=== PATIENT | male | born 1935 | race Caucasian/White ===

== ENCOUNTER 2018-08-05 15:00 | Outpatient (CLI) | payer MEDICARE, OTHER ==
--- NOTE | 2018-08-05 17:11 | RAD ---
CHEST PA AND LATERAL: 08/05/18 HISTORY: 83-year-old male with history of dyspnea. COMPARISON: 02/07/16. FINDINGS: Mild hyperinflation. Heart size is normal. There is no confluent pneumonia, overt edema, or pleural e ffusion. IMPRESSION: No acute intrathoracic disease. Mild bilateral hyperinflation, stable. 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 POS: [facility]
== END 2018-08-05 15:01 | disposition home or self-care (01) ==
LOC: RAD 15:00
PROVIDERS: ATTEND Internal Medicine Pulmonary Disease
DX: R06.00 Dyspnea, unspecified (principal); R91.8 Other nonspecific abnormal finding of lung field; I70.0 Atherosclerosis of aorta; I77.819 Aortic ectasia, unspecified site
CPT/HCPCS: 71046

== ENCOUNTER 2018-08-18 09:51 | Outpatient (CLI) | payer MEDICARE, OTHER ==
[2018-08-18 11:22] LABS: Hemoglobin 13.3 g/dL (14.0-18.0); Mean Corpuscular Hemoglobin 34.7 pg (27.0-31.0); Mean Platelet Volume 7.5 fL (7.4-10.4); Platelet Count 284 thou/uL (130-400); RBC Distribution Width 11.3 % (11.5-14.5); Red Blood Cell (RBC) Count 3.85 mill/uL (4.70-6.10); White Blood Cell (WBC) Count 5.9 thou/uL (4.8-10.8)
[2018-08-18 11:28] LABS: PTT 33.6 SEC (22.9-36.1); Prothrombin Time 13.2 SEC (12.0-14.7)
[2018-08-18 11:46] LABS: Anion Gap 13 mmol/L (10-20); BUN (Urea Nitrogen) 19 mg/dL (8.4-25.7); Calc. Creatinine Clearance 0 mL/min (70-130); Calcium 9.3 mg/dL (7.8-10.44); Carbon Dioxide 24 mmol/L (23-31); Chloride 105 mmol/L (98-107); Estimated GFR-MDRD 70; Glucose 89 mg/dL (83-110); Potassium 4.7 mmol/L (3.5-5.1); Sodium 137 mmol/L (136-145)
== END 2018-08-18 09:52 | disposition home or self-care (01) ==
LOC: LABBT 09:51
PROVIDERS: ATTEND Urology
DX: Z01.818 Encounter for other preprocedural examination (principal); N21.0 Calculus in bladder; N13.2 Hydronephrosis with renal and ureteral calculous obstruction
CPT/HCPCS: 80048; 85027; 85610; 85730; 93005; 93010

== ENCOUNTER 2018-08-24 06:02 | Day surgery (SDC) | payer MEDICARE, OTHER ==
[2018-08-18 10:18] VITALS: BMI 32.0
[2018-08-24] MEDS ORDERED: Fentanyl 100 MCG/2 ML VIAL ONE (06:40)
[2018-08-24] MEDS ORDERED: cefTRIAXone\\ROCEPHIN 2 GM in Sodium Chloride 0.9% 100 ML IVPB SCH (07:00)
[2018-08-24] MEDS ORDERED: Iothalamate Meglumine 60% 50 ML VIAL FS ONE (07:08)
[2018-08-24] MEDS ORDERED: Furosemide 20 MG/2 ML VIAL ONE (08:03)
[2018-08-24] MEDS ORDERED: Furosemide 40 MG/4 ML VIAL ONE (08:03)
--- NOTE | 2018-08-24 09:06 | OP ---
DATE OF PROCEDURE: 08/24/2018 PREOPERATIVE DIAGNOSIS: Recurrent bladder tumors. POSTOPERATIVE DIAGNOSIS: Recurrent bladder tumors. PROCEDURES PERFORMED: Cystoscopy, fulguration of bladder tumors, multiple and bilateral retrograde. SURGEON: Dr. Davin Alexander. ANESTHETIC: General. ESTIMATED BLOOD LOSS: Minimal. FINDINGS: There is no evidence of stricture disease. He has large lateral lobe hypertrophy and a mo derate median lobe. The right ureteral orifice has been prior resected. A right retrograde study wa s normal. He had multiple small papillary superficial tumors surrounding the left ureteral orifice. Because of their association in close proximity with this, we did not resect it, but rather used a g yrus to cauterize these. He was given indigo carmine and Lasix, and he had no evidence of obstructio n across the left or right ureter and a retrograde study of the left ureter showed no persistent fill ing defect or evidence of obstruction, so a stent was not placed. OPERATIVE TECHNIQUE: After obtaining written and verbal consent from the patient, he was brought to the operating suite. He had received Rocephin IV piggyback. He was given a general anesthetic, oral obturator intubation, placed in the dorsal lithotomy position and sterilely prepped and draped. Cys toscopy was initially performed with a 22-Liberian sheath. This was well lubricated and passed under d irect vision through the male urethra into the urinary bladder with the aid of a 30-degree lens and a video camera and monitor. The bladder was then filled and emptied number of times, being examined b oth the 30 and the 70-degree lens with the findings above. A 24-Liberian resectoscope sheath was broug ht in with a visual obturator and a 30-degree lens and video camera were used to pass this well lubri cated through the male urethra into the bladder. A gyrus generator and Cordero resectoscope sheath with a bladder tumor loop were then brought in. We used a 30-degree lens video camera and monitor, c auterized these and destroyed with fulguration of these lesions. These instruments were then removed . The patient was given indigo carmine and Lasix. There was good efflux from both ureteral orifices . Retrograde studies on the right and the left side, the left side was done by placing an angle Glid ewire up that side and a 5-Liberian Pollack catheter then filling up the entire collecting system as we removed the Pollack, right side was done by just using a 5-Liberian cone tip catheter. Each side appe ared to drain well. There does not appear to be any obstruction across either the left ureter and fo r this reason, a stent was not placed. The bladder straining instruments were removed. He was awake luis miguel, extubated, and taken by stretcher to the recovery room.
--- NOTE | 2018-08-24 10:18 | RAD ---
RETROGRADE IVP: Comparison: 07-22-16 History: Renal calculi. FINDINGS/IMPRESSION: Limited intraoperative fluoroscopic views during retrograde IVP were submitted for interpretation. Co ntrast was seen in both collecting systems. No obvious calculus projecting over the right renal shado w. There is a 5 mm calcification projecting over the left renal shadow. No hydronephrosis is seen. No filling defects are seen within either ureter. IMPRESSION: Left nephrolithiasis. POS: [facility]
== END 2018-08-24 10:20 | disposition home or self-care (01) ==
LOC: SDC 06:02
PROVIDERS: ATTEND Urology
PROC: 0T5B8ZZ Destruction of Bladder, Via Natural or Artificial Opening Endoscopic (ICD-10-PCS; principal; 2018-08-24)
PROC: BT141ZZ Fluoroscopy of Kidneys, Ureters and Bladder using Low Osmolar Contrast (ICD-10-PCS; 2018-08-24)
DX: C67.6 Malignant neoplasm of ureteric orifice (principal); N20.0 Calculus of kidney; J44.9 Chronic obstructive pulmonary disease, unspecified; I10 Essential (primary) hypertension; Z79.899 Other long term (current) drug therapy
CPT/HCPCS: 52005; 52234; 74420; Q9968; C1758; C1769; J0696; J1940; J3010; J7050; Q9961

== ENCOUNTER 2020-03-30 06:24 | Outpatient (CLI) | payer MEDICARE, OTHER ==
[2020-03-30 11:11] LABS: PTT 32.6 sec (22.9-36.1)
[2020-03-30 11:51] LABS: Hemoglobin 13.6 g/dL (14.0-18.0); Mean Corpuscular HGB CONC 33.1 g/dL (32.0-36.0); Mean Corpuscular Hemoglobin 33.7 pg (27.0-31.0); Mean Platelet Volume 8.3 fL (7.4-10.4); Platelet Count 275 thou/uL (130-400); RBC Distribution Width 11.3 % (11.5-14.5); Red Blood Cell (RBC) Count 4.04 mill/uL (4.70-6.10); White Blood Cell (WBC) Count 5.3 thou/uL (4.8-10.8)
[2020-03-30 12:04] LABS: Anion Gap 12 mmol/L (10-20); BUN (Urea Nitrogen) 17 mg/dL (8.4-25.7); Calc. Creatinine Clearance 0 mL/min (70-130); Calcium 9.3 mg/dL (7.8-10.44); Carbon Dioxide 25 mmol/L (23-31); Chloride 105 mmol/L (98-107); Estimated GFR-MDRD 60; Glucose 99 mg/dL (83-110); Potassium 4.9 mmol/L (3.5-5.1); Sodium 137 mmol/L (136-145)
[2020-03-31 14:25] LABS: SARS-CoV-2 MS2 Positive; SARS-CoV-2 N Gene Negative; SARS-CoV-2 S Gene Negative; SARS-CoV-2 orf1ab Negative
== END 2020-03-30 06:25 | disposition home or self-care (01) ==
LOC: LABBT 06:24
PROVIDERS: ATTEND Urology
DX: Z01.818 Encounter for other preprocedural examination (principal); Z11.59 Encounter for screening for other viral diseases; N32.9 Bladder disorder, unspecified
CPT/HCPCS: 80048; 85027; 85610; 85730; 87086; U0003; 87635

== ENCOUNTER 2020-04-03 06:49 | Day surgery (SDC) | payer MEDICARE, OTHER ==
[2020-03-29 09:24] VITALS: BMI 31.8
[2020-04-03] MEDS ORDERED: mitoMYcin 40 MG in Sodium Chloride 0.9% 40 ML I-VESIC SCH (07:30)
[2020-04-03] MEDS ORDERED: CEFAZOLIN 2 GM in Premix Bag 1 BAG IVPB SCH (07:30)
[2020-04-03] MEDS ORDERED: Iopamidol 50 ML FS ONE (08:35)
[2020-04-03] MEDS ORDERED: Fentanyl 100 MCG/2 ML VIAL ONE (08:38)
--- NOTE | 2020-04-03 09:47 | RAD ---
EXAM: Retrograde IVP HISTORY: Kidney stones COMPARISON: 08/24/2018 FINDINGS/IMPRESSION: Limited intraoperative fluoroscopic views of the retrograde IVP were submitted f or interpretation. There is no evidence of hydronephrosis. Mobile filling defects in the right ureter may represent air bubbles.
[2020-04-03] MEDS ORDERED: hydrALAZINE 20 MG/ML VIAL ONE (10:12)
--- NOTE | 2020-04-03 10:55 | OP ---
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 PROCEDURES PERFORMED: 1. Cystoscopy. 2. Bilateral retrogrades. 3. Transurethral resection of bladder tumor. 4. Fulguration. ANESTHETIC: General. ESTIMATED BLOOD LOSS: Minimal. DRAINS PLACED: He had a 16-Djiboutian Campa catheter placed at the end of the case. SPECIMENS REMOVED: He had papillary tumors above the left trigone on the floor and papillary tumor lateral to the right ureteral orifice near the bladder neck. He also had numerous other tumors that were fulgurated on the floor of trigone and bladder neck. The ureteral orifices were not involved. Retrograde studies done did not show any thing suggesting ureteral cancer of the ureters or collecting system. It looks like he probably has a stone in the lower calyx on the left side. DESCRIPTION OF PROCEDURE: After obtaining written and verbal consent from the patient, after receiving IV antibiotics, he was taken to the operating suite. He was placed in a supine position on the treatment table. PlexiPulses were placed on his lower extremities and turned on. He was given a general anesthetic and oral obturator intubation. He was placed in the dorsal lithotomy position. He was sterilely prepped and draped. Cystoscopy was performed with a 22-Djiboutian sheath. This was well lubricated and passed under direct vision through the male urethra into the urinary bladder with aid of a 30-degree lens and a video camera and monitor. The bladder was filled and emptied a number of times and examined with both the 30 and the 70-degree lens with the findings above. At this point, the fluoroscopy unit was brought in, placed over him. A career services coordinator film was taken. A cone-tipped catheter was flushed with contrast. It was then placed into the left ureteral orifice and contrast was slowly injected in a retrograde manner, filling out the ureter and upper collecting system, probably about 12 mL of contrast were used. Drainage films were done. The right side was done in a similar manner. The right ureteral orifice had been previously resected, so it did have some slight changes, minimal dilatation, but I think this was just related probably to maybe some refluxing. There were some air bubbles seen on the right. At this point, the instruments were removed. A 24-Djiboutian resectoscope sheath with visual obturator was well lubricated and passed under direct vision through the male urethra into the bladder with a 30-degree lens and VisionGate resectoscope with the Gyrus generator and Gyrus bladder tumor loop were used. We resected 2 areas as mentioned, then cauterized these resection sites and then cauterized all small papillary lesions that were spread out along different areas of the trigone, bladder neck, and some on the floor. The ureteral orifices were not involved. No stents were placed. At this point, the Campa catheter was placed, about 20 mL placed in the balloon. We did place 40 mg of mitomycin-C into the bladder and about 40 to 50 mL of sterile saline. Catheter was plugged and he was taken out of the dorsal lithotomy position, awakened, extubated, and taken by indio to recovery room. Job ID: [id number]
[2020-04-03] MEDS ORDERED: PROPOFOL 200 MG/20 ML VIAL ONE (11:41)
[2020-04-03] MEDS ORDERED: Ondansetron PF 4 MG/2 ML Vial ONE (11:41)
[2020-04-03] MEDS ORDERED: Lidocaine 1% PF 5 ML VIAL ONE (11:41)
== END 2020-04-03 12:25 | disposition home or self-care (01) ==
LOC: SDC 06:49
PROVIDERS: ATTEND Urology
PROC: 0T5B8ZZ Destruction of Bladder, Via Natural or Artificial Opening Endoscopic (ICD-10-PCS; principal; 2020-04-03)
PROC: BT14ZZZ Fluoroscopy of Kidneys, Ureters and Bladder (ICD-10-PCS; 2020-04-03)
DX: C67.2 Malignant neoplasm of lateral wall of bladder (principal); C67.0 Malignant neoplasm of trigone of bladder; J44.9 Chronic obstructive pulmonary disease, unspecified; Z79.899 Other long term (current) drug therapy
CPT/HCPCS: 52234; 74420; 93005; J9280; 88307; 93010; J0360; J0690; J2001; J2405; J2704; J3010; Q9967

== ENCOUNTER 2021-05-04 12:49 | Outpatient (CLI) | payer MEDICARE, OTHER ==
[2021-05-04 15:07] LABS: Hemoglobin 13.1 g/dL (13.5-17.5); Mean Corpuscular HGB CONC 32.9 g/dL (32.0-36.0); Mean Corpuscular Hemoglobin 33.4 pg (27.0-33.0); Mean Corpuscular Volume 101.5 fl (81.2-95.1); Mean Platelet Volume 10.2 fl (7.4-10.4); Platelet Count 295 10x3/uL (150-450); RBC Distribution Width 12.7 % (11.5-14.5); Red Blood Cell (RBC) Count 3.92 10x6/uL (4.32-5.72); White Blood Cell (WBC) Count 6.3 10x3/uL (3.5-10.5)
[2021-05-04 15:16] LABS: Anion Gap 15 mmol/L (10-20); BUN (Urea Nitrogen) 16 mg/dL (8.4-25.7); Calc. Creatinine Clearance 0 mL/min (70-130); Calcium 10.2 mg/dL (7.8-10.44); Carbon Dioxide 24 mmol/L (23-31); Chloride 107 mmol/L (98-107); Glucose 87 mg/dL (83-110); Potassium 4.7 mmol/L (3.5-5.1); Sodium 141 mmol/L (136-145)
[2021-05-04 15:20] LABS: INR-International Normal Ratio 0.9; Prothrombin Time 10.5 sec (9.5-12.1)
== END 2021-05-04 12:50 | disposition home or self-care (01) ==
LOC: LABBT 12:49
PROVIDERS: ATTEND Urology
DX: Z01.812 Encounter for preprocedural laboratory examination (principal); N13.30 Unspecified hydronephrosis; N20.0 Calculus of kidney
CPT/HCPCS: 80048; 85027; 85610; 85730

== ENCOUNTER 2021-05-16 09:39 | Observation (INO) | payer MEDICARE, OTHER ==
[2021-05-16] MEDS ORDERED: Levofloxacin 500 mg/D5W 100 ml Premix Bag ONE (10:11)
[2021-05-16] MEDS ORDERED: Fentanyl 100 MCG/2 ML VIAL ONE ×3 (11:13→15:56)
[2021-05-16] MEDS ORDERED: PHENYLEPHRINE-NS 100 MCG/ML 10 ML SYRINGE ONE (11:31)
[2021-05-16] MEDS ORDERED: Rocuronium Bromide 10 MG/ML (10ML VIAL) ONE (11:31)
[2021-05-16] MEDS ORDERED: PROPOFOL 200 MG/20 ML VIAL ONE (11:31)
[2021-05-16] MEDS ORDERED: Glycopyrrolate 0.2 MG/ML 5 ML SYRINGE ONE (11:31)
[2021-05-16] MEDS ORDERED: Ondansetron PF 4 MG/2 ML Vial ONE (11:31)
[2021-05-16] MEDS ORDERED: Lidocaine 1% PF 5 ML VIAL ONE (11:31)
[2021-05-16] MEDS ORDERED: Iothalamate Meglumine 60% 30 ML VIAL FS ONE (11:35)
[2021-05-16] MEDS ORDERED: SUGAMMADEX SODIUM 200 MG/2 ML VIAL ONE (11:48)
[2021-05-16] MEDS ORDERED: HYDROcodone/Acetaminophen 5/325 mg Tablet ONE (14:43)
[2021-05-16] MEDS ORDERED: Morphine 4 MG/ML VIAL ONE ×2 (15:11→15:26)
[2021-05-16] MEDS ORDERED: Acetaminophen 500 MG TAB ONE (15:56)
[2021-05-16] MEDS ORDERED: Ketorolac Tromethamine 30 MG/ML VIAL ONE (17:04)
[2021-05-16] MEDS ORDERED: Fentanyl CADD 100 ML IVPB SCH (17:15)
[2021-05-16] MEDS ORDERED: diphenhydrAMINE 50 MG/ML VIAL IM/IV PRN (17:15)
[2021-05-16] MEDS ORDERED: Promethazine HCl 25 MG/ML VIAL IM PRN (17:15)
[2021-05-16] MEDS ORDERED: Zolpidem Tartrate 5 MG TAB PO PRN (17:15)
[2021-05-16] MEDS ORDERED: Naloxone HCl 0.4 mg/ml Vial IV PRN (17:15)
[2021-05-16] MEDS ORDERED: diphenhydrAMINE 25 MG CAP PO PRN (17:15)
[2021-05-16] MEDS ORDERED: Ondansetron PF 4 MG/2 ML Vial IVP PRN (17:15)
[2021-05-16] MEDS ORDERED: Ketorolac Tromethamine 30 MG/ML VIAL IVP PRN (20:40)
[2021-05-16 20:43] VITALS: BMI 30.6
[2021-05-16] MEDS ORDERED: Nitrofurantoin Monohyd/M-Cryst 100 MG CAP PO SCH (21:00)
[2021-05-17 06:00] LABS: #Eosinphils 0.3 thou/uL (0.0-0.7); #Lymphocytes 1.7 thou/uL (1.20-3.40); #Monocytes 1.1 thou/uL (0.11-0.59); #Neutrophils 5.6 thou/uL (1.40-6.50); %Basophils 0.2 % (0.0-1.0); %Eosinophils 3.9 % (0.0-10.0); %Neutrophils 63.9 % (42.0-75.0); Hemoglobin 12.2 g/dL (14.0-18.0); Mean Corpuscular HGB CONC 33.4 g/dL (32.0-36.0); Mean Corpuscular Hemoglobin 35.5 pg (27.0-31.0); Mean Platelet Volume 7.2 fL (7.4-10.4); Platelet Count 279 thou/uL (130-400); RBC Distribution Width 11.4 % (11.5-14.5); Red Blood Cell (RBC) Count 3.43 mill/uL (4.70-6.10); White Blood Cell (WBC) Count 8.7 thou/uL (4.8-10.8)
[2021-05-17 06:14] LABS: Anion Gap 12 mmol/L (10-20); BUN (Urea Nitrogen) 17 mg/dL (8.4-25.7); Calc. Creatinine Clearance 58 mL/min (70-130); Calcium 8.7 mg/dL (7.8-10.44); Carbon Dioxide 24 mmol/L (23-31); Chloride 105 mmol/L (98-107); Glucose 103 mg/dL (83-110); Potassium 4.3 mmol/L (3.5-5.1); Sodium 137 mmol/L (136-145)
[2021-05-17] MEDS ORDERED: Fish Oil 1,000 MG CAP PO SCH (09:00)
[2021-05-17] MEDS ORDERED: Cyanocobalamin (Vitamin B-12) 1,000 MCG TAB PO SCH (09:00)
[2021-05-17] MEDS ORDERED: Lisinopril 10 MG TAB PO SCH (09:00)
[2021-05-17] MEDS ORDERED: Multivit, Therapeutic 1 TAB PO SCH (09:00)
[2021-05-17] MEDS ORDERED: Cholecalciferol 1,000 UNITS (25 MCG) TAB PO SCH (09:00)
[2021-05-17 09:13] VITALS: BP 134/76
[2021-05-17 12:15] VITALS: TEMP 98.3
[2021-05-17] MEDS ORDERED: Atorvastatin Calcium 20 MG TAB PO SCH (21:00)
[2021-05-24 18:12] LABS: CA Oxalate Dihydrate 20 % (.); CA Oxalate Monohydrate 80 % (.); Color Brown (.); Stone Weight 94 mg (.)
== END 2021-05-17 13:20 | disposition home or self-care (01) ==
LOC: SDC 09:39 → ONC 16:36
PROVIDERS: ADMIT Urology; ATTEND Urology
PROC: 0TF48ZZ Fragmentation in Left Kidney Pelvis, Via Natural or Artificial Opening Endoscopic (ICD-10-PCS; principal; 2021-05-16)
PROC: 0T778DZ Dilation of Left Ureter with Intraluminal Device, Via Natural or Artificial Opening Endoscopic (ICD-10-PCS; 2021-05-16)
DX: N13.2 Hydronephrosis with renal and ureteral calculous obstruction (principal); J44.9 Chronic obstructive pulmonary disease, unspecified; M54.5 Low back pain; I10 Essential (primary) hypertension; E78.5 Hyperlipidemia, unspecified; Z79.899 Other long term (current) drug therapy; Z98.890 Other specified postprocedural states
CPT/HCPCS: 52356; 74420; 80048; 82365; 85025; C2617; J3010; 36415; 88300; G0378; J1885; J1956; J2270; J2405; J2704

== ENCOUNTER 2022-03-20 09:27 | Outpatient (CLI) | payer MEDICARE, OTHER ==
[2022-03-20 11:23] LABS: Hemoglobin 12.6 g/dL (13.5-17.5); Mean Corpuscular HGB CONC 32.6 g/dL (32.0-36.0); Mean Corpuscular Hemoglobin 33.7 pg (27.0-33.0); Mean Corpuscular Volume 103.5 fl (81.2-95.1); Mean Platelet Volume 10.4 fl (7.4-10.4); Platelet Count 281 10x3/uL (150-450); RBC Distribution Width 12.8 % (11.5-14.5); Red Blood Cell (RBC) Count 3.74 10x6/uL (4.32-5.72); White Blood Cell (WBC) Count 6.2 10x3/uL (3.5-10.5)
[2022-03-20 11:41] LABS: PTT 27.8 sec (22.0-33.0); Prothrombin Time 10.4 sec (9.5-12.1)
[2022-03-20 11:43] LABS: Anion Gap 15 mmol/L (10-20); BUN (Urea Nitrogen) 16 mg/dL (8.4-25.7); Calc. Creatinine Clearance 0 mL/min (70-130); Calcium 9.2 mg/dL (7.8-10.44); Carbon Dioxide 24 mmol/L (23-31); Chloride 105 mmol/L (98-107); Glucose 89 mg/dL (83-110); Potassium 4.4 mmol/L (3.5-5.1); Sodium 140 mmol/L (136-145)
== END 2022-03-20 09:28 | disposition home or self-care (01) ==
LOC: LABBT 09:27
PROVIDERS: ATTEND Urology
DX: Z01.818 Encounter for other preprocedural examination (principal); D49.4 Neoplasm of unspecified behavior of bladder; Z20.822 Contact with and (suspected) exposure to COVID-19
CPT/HCPCS: 80048; 85027; 85610; 85730; 87086; 93005; U0003; U0005; 93010

== ENCOUNTER 2022-03-25 05:33 | Day surgery (SDC) | payer MEDICARE, OTHER ==
[2022-03-21 15:25] VITALS: BMI 31.5
[2022-03-25] MEDS ORDERED: SODIUM CHLORIDE 0.9% I-VESIC SCH (06:30)
[2022-03-25] MEDS ORDERED: MITOMYCIN I-VESIC SCH (06:30)
[2022-03-25] MEDS ORDERED: Sodium Chloride 0.9% 100 ML ONE (06:38)
[2022-03-25] MEDS ORDERED: CEFAZOLIN 2 GM VIAL ONE (06:38)
[2022-03-25] MEDS ORDERED: Phenylephrine 10 MG/ML VIAL ONE (06:39)
[2022-03-25] MEDS ORDERED: fentaNYL Citrate/PF 100 MCG/2 ML SYRINGE ONE (06:39)
[2022-03-25] MEDS ORDERED: Dexmedetomidine 200 MCG/2 ML VIAL ONE (06:39)
[2022-03-25] MEDS ORDERED: Iopamidol 30 ML ONE (07:10)
[2022-03-25] MEDS ORDERED: PROPOFOL 200 MG/20 ML VIAL ONE (07:36)
[2022-03-25] MEDS ORDERED: Lidocaine 1% PF 5 ML VIAL ONE (07:36)
[2022-03-25] MEDS ORDERED: Glycopyrrolate 0.2 MG/ML 5 ML SYRINGE ONE (07:36)
[2022-03-25] MEDS ORDERED: Ondansetron PF 4 MG/2 ML Vial ONE (07:36)
[2022-03-25] MEDS ORDERED: Rocuronium Bromide 10 MG/ML (10ML VIAL) ONE (07:36)
[2022-03-25] MEDS ORDERED: Dexamethasone 20 MG/5 ML VIAL ONE (07:36)
== END 2022-03-25 11:00 | disposition home or self-care (01) ==
LOC: SDC 05:33
PROVIDERS: ATTEND Urology
PROC: 0TBB8ZZ Excision of Bladder, Via Natural or Artificial Opening Endoscopic (ICD-10-PCS; principal; 2022-03-25)
PROC: 3E0K705 Introduction of Other Antineoplastic into Genitourinary Tract, Via Natural or Artificial Opening (ICD-10-PCS; 2022-03-25)
DX: C67.3 Malignant neoplasm of anterior wall of bladder (principal); C67.6 Malignant neoplasm of ureteric orifice; N32.89 Other specified disorders of bladder; N40.0 Benign prostatic hyperplasia without lower urinary tract symptoms; I10 Essential (primary) hypertension; Z79.899 Other long term (current) drug therapy
CPT/HCPCS: 51720; 52224; 74420; J9280; 88305; J0690; J1100; J2370; J2405; J2704; J3490; Q9967